=== PATIENT | male | born 1980 | race Caucasian/White ===

== ENCOUNTER 2020-04-13 00:19 | Outpatient (CLI) | payer OTHER, SELFPAY ==
[2020-04-13 18:29] LABS: SARS-CoV-2 RNA PCR Negative
== END 2020-04-13 00:20 | disposition home or self-care (01) ==
LOC: ANHCOVIDDT 00:19
PROVIDERS: PCP Internal Medicine; Visit Provider Internal Medicine Gastroenterology
DX: Z01.812 Encounter for preprocedural laboratory examination (principal); Z11.59 Encounter for screening for other viral diseases
CPT/HCPCS: 87635; C9803; U0003

== ENCOUNTER 2020-04-15 04:00 | Day surgery (SDC) | payer OTHER, SELFPAY ==
[2020-04-06 14:29] VITALS: BMI 27.2
[2020-04-15 07:21] VITALS: BP 117/73; PULSE 61; RESP 16; TEMP 36.3; O2SAT 99; BMI 27.3
--- NOTE | 2020-04-15 07:30 | P.HP_ITS ---
History of Present Illness History of Present Illness Consent: Risks, benefits, and alternatives have been discussed and questions answered. Patient agrees to proceed with procedure. Chief complaint: Reflux/ Fam Hx Colon Ca Narrative: Ed Viveros is a 40 year old male with familial adenomatous polyposis syndrome, positive FAP gene [facility] Social History Social History Smoking status: Never smoker Living arrangements: with family Gender identity (if verbalized by the patient): Male Sexual Orientation (if Verbalized by the Patient): Straight or Heterosexual Spiritual care concerns: No Meds Home Medications and Allergies Home Medications Medication Instructions Recorded Confirmed Type omeprazole 40 mg PO PRN PRN 04/06/20 04/15/20 History Allergies Allergy/AdvReac Type Severity Reaction Status Date / Time No Known Allergies Allergy Verified 04/15/20 07:20 Vital Signs Vital Signs - 24 hr 04/15/20 07:21 Temperature 36.3 C L Pulse Rate 61 Respiratory Rate 16 Blood Pressure 117/73 Pulse Oximetry 99 Exam Resp: Auscultation: clear to auscultation bilaterally Cardio: Rate: regular rate Rhythm: regular rhythm GI: GI Palp: Yes Soft to palpation and No Tenderness to palpation present (GI) Assessment and Plan Assessment and plan (1) Familial adenomatous polyposis: Code(s): D12.6 - Benign neoplasm of colon, unspecified Status: Acute Assessment and Plan: Colonoscopy with possible biopsy or polypectomy or cautery or injection of substances.EGD with possible biopsy or dilatation or cautery.
[2020-04-15] MEDS: LACTATED RINGERS 1,000 ML 150 ML IV CONT (07:37)
--- NOTE | 2020-04-15 07:57 | WPDANESEPPF ---
Anes - Initial Pre Proc Eval Procedure: Operation Date: 04/15/20 08:30 Proposed Procedures p Esophagogastroduodenoscopy & Screening Colonoscopy - Anant Lainez MD Date/Time: 04/15/20 07:57 Surgeon: Anant Lainez MD Pre Op Diagnosis: Reflux/ Fam Hx Colon Ca Patient Data Age: 40 Gender: M Height: 5 ft 7 in Weight: 79.2 kg Last Vital Signs Temp 97.3 F L 04/15/20 07:21 Pulse 61 04/15/20 07:21 Resp 16 04/15/20 07:21 BP 117/73 04/15/20 07:21 Pulse Ox 99 04/15/20 07:21 Allergies Allergy/AdvReac Type Severity Reaction Status Date / Time No Known Allergies Allergy Verified 04/15/20 07:20 Home Medications Medication Instructions Recorded Confirmed Type omeprazole 40 mg PO PRN PRN 04/06/20 04/15/20 History Patient hx anesthesia problems: none Family hx anesthesia problems: none [facility] Past Medical History Medical History (Updated 04/15/20 @ 07:49 by Keith Cortés MD) GERD (gastroesophageal reflux disease) Meniere disease Social History Social History Smoking status: Never smoker Living arrangements: with family Gender identity (if verbalized by the patient): Male Sexual Orientation (if Verbalized by the Patient): Straight or Heterosexual Spiritual care concerns: No Anes - Eval Final PreProcedure Day of Procedure 04/15/20 07:57 Patient weight: normal Heart: regular rate and rhythm Lungs: clear to auscultation Airway: Mallampati scale class II Neurological: alert and oriented Last oral intake: >/= 8 hours ASA classification: II Emergent: no Anesthetic plan: proceed Anesthesia type and monitoring: general GIVS and standard monitoring Informed Consent: The patient's anesthetic plan and its attendant risks and benefits were discussed with the patient/family/POA. Questions were solicited and answers provided to the satisfaction of the patient/family/POA.
[2020-04-15] MEDS: BENZOCAINE (*SP) 60 ML SPRAY CAN (HURRICAINE) 1 SPRAY MUCOUS MEM (08:20)
[2020-04-15 08:43] VITALS: BP 133/77; PULSE 61; RESP 15; O2SAT 60
[2020-04-15 08:53] VITALS: BP 97/55; PULSE 54; RESP 15; O2SAT 60
[2020-04-15 09:03] VITALS: BP 101/47; PULSE 58; RESP 15; O2SAT 60
== END 2020-04-15 09:25 | disposition home or self-care (01) ==
PROVIDERS: PCP Internal Medicine; Visit Provider Internal Medicine Gastroenterology
PROC: 0DJ08ZZ Inspection of Upper Intestinal Tract, Via Natural or Artificial Opening Endoscopic (ICD-10-PCS; CPT 43235; principal; 2020-04-15 08:30)
DX: Z12.11 Encounter for screening for malignant neoplasm of colon (principal); Z15.09 Genetic susceptibility to other malignant neoplasm; K21.0 Gastro-esophageal reflux disease with esophagitis
CPT/HCPCS: 45378; 43239; 88305; J2704; J7120

== ENCOUNTER 2022-04-13 00:19 | Day surgery (SDC) | payer OTHER, SELFPAY ==
[2022-03-30 13:58] VITALS: BMI 27.6
--- NOTE | 2022-04-12 09:40 | P.PNAN_ITS ---
Anes - Initial Pre Proc Eval Procedure: Operation Date: 04/13/22 07:30 Proposed Procedures p Esophagogastroduodenoscopy & Screening Colonoscopy - Anant Lainez MD Date/Time: 04/12/22 09:40 Surgeon: Anant Lainez MD Pre Op Diagnosis: familial adenomatous polyposis syndrome Patient Data Age: 42 Gender: M Height: 1.7 m Weight: 80 kg Allergies Allergy/AdvReac Type Severity Reaction Status Date / Time No Known Allergies Allergy Verified 04/13/22 06:42 Home Medications Medication Instructions Recorded Confirmed Type onabotulinumtoxinA 100 unit 200 unit IM ONCE 01/31/22 01/31/22 History solution for injection (Botox) Patient hx anesthesia problems: none Family hx anesthesia problems: none Results Review: All pre-operative results and documents have been reviewed as part of the pre- operative evaluation. [facility] Past Medical History Medical History (Updated 01/31/22 @ 16:12 by Abhijit Trujillo MD) Arthritis of right acromioclavicular joint GERD (gastroesophageal reflux disease) Meniere disease Migraine Vertigo Surgical History Surgical History No significant past surgical history Family History Family History Grandparent Carcinoma of colon Mother Carcinoma of colon Social History Social History Smoking status: Never smoker Alcohol intake: current Drinks per week: 1 Alcohol use details: Beer/Wine Substance use: never Substance use type: does not use Living arrangements: with family 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 Gender identity (if verbalized by the patient): Male Sexual Orientation (if Verbalized by the Patient): Straight or Heterosexual Spiritual care concerns: No Anes - Eval Final PreProcedure Day of Procedure 04/12/22 09:40 Patient weight: overweight Heart: regular rate and rhythm Lungs: clear to auscultation Airway: Mallampati scale class II Neurological: alert and oriented Last oral intake: >/= 8 hours ASA classification: II Emergent: no Anesthetic plan: proceed Anesthesia type and monitoring: general GIVS and standard monitoring Results Review: All pre-operative results and documents have been reviewed as part of the pre- operative evaluation. Informed Consent: The patient's anesthetic plan and its attendant risks and benefits were discussed with the patient/family/POA. Questions were solicited and answers provided to the satisfaction of the patient/family/POA.
--- NOTE | 2022-04-12 11:16 | P.HP_ITS ---
History of Present Illness History of Present Illness Consent: Risks, benefits, and alternatives have been discussed and questions answered. Patient agrees to proceed with procedure. Chief complaint: familial adenomatous polyposis syndrome Narrative: Ed Viveros is a 42 year old male with a family history of familial adenomatous polyposis syndrome. Positive for FAP gene. Review of Systems Review of Systems: All systems reviewed & are unremarkable except as noted in HPI and below PMFSH Past Medical History Medical History Arthritis of right acromioclavicular joint GERD (gastroesophageal reflux disease) Meniere disease Migraine Vertigo Surgical History Surgical History No significant past surgical history Family History Family History Grandparent Carcinoma of colon Mother Carcinoma of colon Social History Social History Smoking status: Never smoker Alcohol intake: current Drinks per week: 1 Alcohol use details: Beer/Wine Substance use: never Substance use type: does not use Living arrangements: with family 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 Gender identity (if verbalized by the patient): Male Sexual Orientation (if Verbalized by the Patient): Straight or Heterosexual Spiritual care concerns: No Meds Home Medications and Allergies Home Medications Medication Instructions Recorded Confirmed Type onabotulinumtoxinA 100 unit 200 unit IM ONCE 01/31/22 01/31/22 History solution for injection (Botox) Allergies Allergy/AdvReac Type Severity Reaction Status Date / Time No Known Allergies Allergy Verified 04/13/22 06:42 Exam Const: General: alert Orientation/consciousness: patient oriented x3 Resp: Auscultation: clear to auscultation bilaterally Cardio: Rhythm: regular rhythm GI: GI Palp: Yes Soft to palpation and No Tenderness to palpation present (GI) Neuro: General: patient oriented x3 Assessment and Plan Assessment and plan (1) Familial adenomatous polyposis: Code(s): D12.6 - Benign neoplasm of colon, unspecified Status: Acute Assessment and Plan: EGD with possible biopsy or dilatation or cautery.Colonoscopy with possible biopsy or polypectomy or cautery or injection of substances.
[2022-04-13 06:43] VITALS: BP 115/72; PULSE 58; RESP 20; TEMP 36.4; O2SAT 99
[2022-04-13] MEDS: LACTATED RINGERS 1,000 ML 150 ML IV CONT (06:52)
--- NOTE | 2022-04-13 07:40 | SUR.OPER ---
EGD ended at 734. Colonoscopy started at 742.
[2022-04-13 07:55] VITALS: BP 104/68; PULSE 66; RESP 20; O2SAT 100
[2022-04-13 08:05] VITALS: BP 96/61; PULSE 61; RESP 22; O2SAT 100
[2022-04-13 08:15] VITALS: BP 113/69; PULSE 58; RESP 16; O2SAT 99
== END 2022-04-13 08:23 | disposition home or self-care (01) ==
PROVIDERS: PCP Internal Medicine; Visit Provider Internal Medicine Gastroenterology
PROC: 0DJ08ZZ Inspection of Upper Intestinal Tract, Via Natural or Artificial Opening Endoscopic (ICD-10-PCS; CPT 43235; principal; 2022-04-13 07:30)
DX: Z12.11 Encounter for screening for malignant neoplasm of colon (principal); Z84.81 Family history of carrier of genetic disease; K57.30 Diverticulosis of large intestine without perforation or abscess without bleeding; K21.9 Gastro-esophageal reflux disease without esophagitis; M19.90 Unspecified osteoarthritis, unspecified site; H81.09 Meniere's disease, unspecified ear; K21.00 Gastro-esophageal reflux disease with esophagitis, without bleeding
CPT/HCPCS: 45378; 43235; J2704; J7120

== ENCOUNTER 2023-04-24 00:24 | Day surgery (SDC) | payer OTHER, SELFPAY ==
[2023-04-10 13:46] VITALS: BMI 27.4
--- NOTE | 2023-04-23 13:06 | PM.HPGS ---
History of Present Illness History of Present Illness Consent: Risks, benefits, and alternatives have been discussed and questions answered. Patient agrees to proceed with procedure. Chief complaint: diverticulosis, reflux Esophagitis Narrative: Ed Viveros is a 43 year old male with history of familial polyposis. He is positive for the and PT while H. 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 Review of Systems Review of Systems: All systems reviewed & are unremarkable except as noted in HPI and below PMFSH Past Medical History Medical History Arthritis of right acromioclavicular joint GERD (gastroesophageal reflux disease) Meniere disease Migraine Vertigo Surgical History Surgical History No significant past surgical history Family History Family History Grandparent Carcinoma of colon Mother Carcinoma of colon Social History Social History Smoking status: Never smoker Alcohol intake: current Drinks per week: 1 Alcohol use details: Beer/Wine Substance use: never Substance use type: does not use Living arrangements: with family Occupation/Education: occupation 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 Gender identity (if verbalized by the patient): Male Sexual Orientation (if Verbalized by the Patient): Straight or Heterosexual Spiritual care concerns: No Meds Home Medications and Allergies Home Medications Medication Instructions Recorded Confirmed Type onabotulinumtoxinA 100 unit 200 unit IM ONCE 01/31/22 04/24/23 History solution for injection (Botox) omeprazole 40 mg capsule,delayed 40 mg PO DAILY #90 caps 05/28/22 04/24/23 Rx release Allergies Allergy/AdvReac Type Severity Reaction Status Date / Time No Known Allergies Allergy Verified 04/24/23 07:16 Exam Const: General: alert Orientation/consciousness: patient oriented x3 Resp: Auscultation: clear to auscultation bilaterally Cardio: Rhythm: regular rhythm GI: GI Palp: Yes Soft to palpation and No Tenderness to palpation present (GI) Neuro: General: patient oriented x3 Assessment and Plan Assessment and plan (1) MSH2-related Roger syndrome (HNPCC1): Code(s): Z15.09 - Genetic susceptibility to other malignant neoplasm Status: Acute Assessment and Plan: EGD with possible biopsy or dilatation or cautery. Colonoscopy with possible biopsy or polypectomy or cautery or injection of substances.
[2023-04-24 07:10] VITALS: BP 128/77; PULSE 61; RESP 18; TEMP 36.1; O2SAT 99; BMI 28.2
[2023-04-24] MEDS: LACTATED RINGERS 1,000 ML 150 ML IV CONT (07:24)
[2023-04-24 08:57] VITALS: BP 106/67; PULSE 64; RESP 19; O2SAT 100
[2023-04-24 09:07] VITALS: BP 123/77; PULSE 70; RESP 22; O2SAT 100
[2023-04-24 09:17] VITALS: BP 110/80; PULSE 56; RESP 22; O2SAT 100
== END 2023-04-24 09:24 | disposition home or self-care (01) ==
PROVIDERS: PCP Internal Medicine; Visit Provider Internal Medicine Gastroenterology
PROC: 0DJ08ZZ Inspection of Upper Intestinal Tract, Via Natural or Artificial Opening Endoscopic (ICD-10-PCS; CPT 43235; principal; 2023-04-24 08:30)
DX: Z12.11 Encounter for screening for malignant neoplasm of colon (principal); K62.1 Rectal polyp; Z80.0 Family history of malignant neoplasm of digestive organs; Z15.09 Genetic susceptibility to other malignant neoplasm; K21.9 Gastro-esophageal reflux disease without esophagitis
CPT/HCPCS: 45385; 43239; 88305; J2704; J7120

== ENCOUNTER 2024-04-21 00:45 | Day surgery (SDC) | payer OTHER, SELFPAY ==
[2024-04-02 15:03] VITALS: BMI 28.3
[2024-04-21 08:46] VITALS: BP 125/78; PULSE 62; RESP 18; TEMP 36.6; O2SAT 99
[2024-04-21] MEDS: LACTATED RINGERS 1,000 ML 150 ML IV CONT (08:53)
--- NOTE | 2024-04-21 09:12 | WPDANESEPPF ---
Anes - Initial Pre Proc Eval Procedure: Operation Date: 04/21/24 10:00 Proposed Procedures p Esophagogastroduodenoscopy & Colonoscopy - Richard Musa MD Date/Time: 04/21/24 09:12 Surgeon: Richard Musa MD Pre Op Diagnosis: Roger Syndrome Carrier, Pers.Hx. colon polyp, Patient Data Age: 44 Gender: M Height: 1.7 m Weight: 83.1 kg Last Vital Signs Temp 97.8 F 04/21/24 08:46 Pulse 62 04/21/24 08:46 Resp 18 04/21/24 08:46 BP 125/78 04/21/24 08:46 Pulse Ox 99 04/21/24 08:46 O2 Del Method Room Air 04/21/24 08:46 Allergies Allergy/AdvReac Type Severity Reaction Status Date / Time No Known Allergies Allergy Verified 04/21/24 08:44 Home Medications Medication Instructions Recorded Confirmed Type onabotulinumtoxinA 100 unit See Rx Instructions .Route .COMPLEX 01/31/22 04/21/24 History solution for injection (Botox) clomiphene citrate 50 mg tablet 50 mg PO DAILY 04/02/24 04/21/24 History (Clomid) finasteride 5 mg tablet 5 mg PO DAILY 04/02/24 04/21/24 History omeprazole 40 mg capsule,delayed 40 mg PO DAILY PRN Acid Reflux 04/02/24 04/21/24 History release Patient hx anesthesia problems: none Family hx anesthesia problems: none Results Review: All pre-operative results and documents have been reviewed as part of the pre-operative evaluation. 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 Gender identity (if verbalized by the patient): Male Sexual Orientation (if Verbalized by the Patient): Straight or Heterosexual Spiritual care concerns: No Anes - Eval Final PreProcedure Day of Procedure 04/21/24 09:12 Patient weight: normal Heart: regular rate and rhythm Lungs: clear to auscultation Airway: Mallampati scale class II Neurological: alert and oriented Last oral intake: >/= 8 hours ASA classification: II Emergent: no Anesthetic plan: proceed Anesthesia type and monitoring: general GIVS and standard monitoring Results Review: All pre-operative results and documents have been reviewed as part of the pre-operative evaluation. Informed Consent: The patient's anesthetic plan and its attendant risks and benefits were discussed with the patient/family/POA. Questions were solicited and answers provided to the satisfaction of the patient/family/POA.
--- NOTE | 2024-04-21 09:23 | PM.HPGS ---
History of Present Illness History of Present Illness Consent: Risks, benefits, and alternatives have been discussed and questions answered. Patient agrees to proceed with procedure. Chief complaint: Roger Syndrome Carrier, Pers.Hx. colon polyp, Narrative: Ed Viveros is a 44 year old male with family history of familial adenomatous polyposis syndrome and carrier of Roger, he has been getting egd/colonoscopy every year Review of Systems Review of Systems: All systems reviewed & are unremarkable except as noted in HPI and below PMFSH Past Medical History Medical History Arthritis of right acromioclavicular joint GERD (gastroesophageal reflux disease) Meniere disease Migraine Vertigo Surgical History Surgical History No significant past surgical history Family History Family History Grandparent Carcinoma of colon Mother Carcinoma of colon Social History Social History Smoking status: Never smoker Alcohol intake: current Drinks per week: 1 Alcohol use details: Beer/Wine Substance use: never Substance use type: does not use Living arrangements: with family 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/Education: occupation 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 Gender identity (if verbalized by the patient): Male Sexual Orientation (if Verbalized by the Patient): Straight or Heterosexual Spiritual care concerns: No Meds Home Medications and Allergies Home Medications Medication Instructions Recorded Confirmed Type onabotulinumtoxinA 100 unit See Rx Instructions .Route .COMPLEX 01/31/22 04/21/24 History solution for injection (Botox) clomiphene citrate 50 mg tablet 50 mg PO DAILY 04/02/24 04/21/24 History (Clomid) finasteride 5 mg tablet 5 mg PO DAILY 04/02/24 04/21/24 History omeprazole 40 mg capsule,delayed 40 mg PO DAILY PRN Acid Reflux 04/02/24 04/21/24 History release Allergies Allergy/AdvReac Type Severity Reaction Status Date / Time No Known Allergies Allergy Verified 04/21/24 08:44 Vital Signs Vital Signs - 24 hr 04/21/24 08:46 Temperature 97.8 F Pulse Rate 62 Respiratory Rate 18 Blood Pressure 125/78 Pulse Oximetry 99 Oxygen Delivery Room Air Exam Const: General: comfortable and no acute distress HENMT: Face/Nose/Sinus: Normal nares present Eyes: General: appearance normal, both eyes and all related structures Neck: Neck: no JVD Resp: Auscultation: clear to auscultation bilaterally Cardio: Rate: regular rate Rhythm: regular rhythm GI: Inspection: non-distended GI Palp: Yes Soft to palpation Skin: General skin exam: normal color Neuro: General: gait normal Speech: normal speech Extrem: General: normal to inspection Psych: Mental Status: mental status grossly normal Assessment and Plan Assessment and plan (1) Familial adenomatous polyposis: Code(s): D12.6 - Benign neoplasm of colon, unspecified Status: Acute Assessment and Plan: egd and colonoscopy (2) MSH2-related Roger syndrome (HNPCC1): Code(s): Z15.09 - Genetic susceptibility to other malignant neoplasm Status: Acute
--- NOTE | 2024-04-21 09:34 | SUR.OPER ---
EGD ended 929 colon started 934
[2024-04-21 09:47] VITALS: BP 109/72; PULSE 68; RESP 20; O2SAT 99
[2024-04-21 09:57] VITALS: BP 111/75; PULSE 72; RESP 20; O2SAT 100
[2024-04-21 10:07] VITALS: BP 112/76; PULSE 59; RESP 19; O2SAT 100
== END 2024-04-21 10:13 | disposition home or self-care (01) ==
PROVIDERS: PCP Internal Medicine; Referring Provider Internal Medicine Gastroenterology; Visit Provider Internal Medicine Gastroenterology
PROC: 0DJ08ZZ Inspection of Upper Intestinal Tract, Via Natural or Artificial Opening Endoscopic (ICD-10-PCS; CPT 43235; principal; 2024-04-21 10:00)
DX: Z15.09 Genetic susceptibility to other malignant neoplasm (principal); Z86.010 Personal history of colon polyps; K21.9 Gastro-esophageal reflux disease without esophagitis
CPT/HCPCS: 45378; 43235; J2704; J7120

== ENCOUNTER 2024-07-09 00:14 | Day surgery (SDC) | payer OTHER, SELFPAY ==
[2024-07-06 14:37] VITALS: BMI 28.2
--- NOTE | 2024-07-06 14:43 | PC.NURSE ---
Report to the Outpatient Waiting Room, entrance under the green pavilion located off [facility], at time _0630_ on date _[id number]_. Planned Procedure Time: _0830_.? Time changes happen often and if your time is changed the preop area will call you the afternoon before. - You and your visitor will be asked to self-screen and do not enter if you have any COVID symptoms. Please call surgeon if you need to reschedule. - A mask is optional within the hospital at this time. Patients may have clear liquids (water, carbonated beverages, clear teas, apple juice) until 3 hours prior to surgery with a maximum of 20 ounces. - No food from midnight until time of surgery and no smoking. This includes no chewing gum, candy or mints. Take only the following medications with a SIP of water on the morning of surgery: ____None DO NOT STOP ANY OF YOUR OTHER PRESCRIPTION MEDICATIONS PRIOR TO SURGERY EXCEPT THE FOLLOWING Medications to discontinue per physician Multivitamin Date to take last dose____Stop today Please no make-up, nail [place], hairspray, perfume, deodorant, or body powder the day of surgery.? No jewelry (including any body piercings) or valuables the day of surgery, leave them at home.? Please take a shower or bath the night before, or the morning of, surgery with an antibacterial soap.? Wear comfortable, loose fitting clothing.? - Jewelry must be removed prior to entering the operating room.? Rings and piercings that are not removed may be cut off. - The hospital will not accept responsibility for valuables.? - Please leave all valuables, including medications, at home the day of surgery. If you are going home after surgery, a licensed jukebox route driver must drive you home.? - NO public transportation without another adult if you receive anesthesia. - We recommend that an adult stay with you for 24 hours following discharge. - We also recommend that you do not drive, make important decision, drink alcoholic beverages, or take any drugs that were not prescribed by your health care provider for at least 24 hours after your discharge time. Follow any additional instructions given to you from your surgeon. Telephone instructions given to __Ed__and asked if any additional questions and then verbalized understanding. Patient advised to call surgeon office or pre surgery nurse liaison [phone] if any additional questions.
[2024-07-09] VITALS (8 sets, daily range): BP systolic 97–125; BP diastolic 50–79; PULSE 55–67; RESP 14–16; TEMP 36.3; O2SAT 99–100
[2024-07-09] MEDS: LACTATED RINGERS 1,000 ML 30 ML IV CONT ×2 (08:00→10:17)
[2024-07-09] MEDS: ACETAMINOPHEN 500 MG TABLET 1000 MG PO (08:00)
--- NOTE | 2024-07-09 08:11 | WPDANESEPPF ---
Anes - Initial Pre Proc Eval Procedure: Operation Date: 07/09/24 08:30 Proposed Procedures p Bilateral Heel [place] Shock Wave Treatment - Dejon Rae MD Date/Time: 07/09/24 08:11 Surgeon: Dejon Rae MD Pre Op Diagnosis: Bilateral Plantar Fasciitits Patient Data Age: 44 Gender: M Height: 1.7 m Weight: 81.8 kg Allergies Allergy/AdvReac Type Severity Reaction Status Date / Time No Known Allergies Allergy Verified 07/06/24 14:36 Home Medications ?Medication ?Instructions ?Recorded ?Confirmed ?Type onabotulinumtoxinA 100 unit See Rx Instructions .Route .COMPLEX 01/31/22 07/06/24 History solution for injection (Botox) clomiphene citrate 50 mg tablet 50 mg PO DAILY 04/02/24 07/06/24 History (Clomid) finasteride 5 mg tablet 5 mg PO DAILY 04/02/24 07/06/24 History omeprazole 40 mg capsule,delayed 40 mg PO DAILY PRN Acid Reflux #30 05/19/24 07/06/24 Rx release caps multivitamin 1 tablet PO DAILY 07/06/24 07/06/24 History Patient hx anesthesia problems: none Family hx anesthesia problems: none Results Review: All pre-operative results and documents have been reviewed as part of the pre-operative evaluation. [facility] Past Medical History Medical History Plantar fasciitis of left foot Plantar fasciitis of right foot Arthritis of right acromioclavicular joint Vertigo Migraine Meniere disease GERD (gastroesophageal reflux disease) Surgical History Surgical History No significant past surgical history Family History Family History Grandparent Carcinoma of colon Mother Carcinoma of colon Social History Social History Smoking status: Never smoker Alcohol intake: current Drinks per week: 1 Alcohol use details: Beer/Wine Substance use: never Substance use type: does not use Living arrangements: with family Occupation/Education: occupation 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 ) Neurological: alert and oriented Last oral intake: >/= 8 hours ASA classification: II Emergent: no Anesthetic plan: proceed Anesthesia type and monitoring: general LMA and standard monitoring Results Review: All pre-operative results and documents have been reviewed as part of the pre-operative evaluation. Hx of Roger syndrome. Otherwise excellent health w high functional status w running long distances, no cp or sob. Informed Consent: The patient's anesthetic plan and its attendant risks and benefits were discussed with the patient/family/POA. Questions were solicited and answers provided to the satisfaction of the patient/family/POA.
--- NOTE | 2024-07-09 08:44 | WPDHPUPDATE1 ---
History and Physical Update Update Date/Time: 07/09/24 08:44 History and Physical has been reviewed, including an updated exam of the patient. There are NO changes in the patient's condition. Risks, benefits, and alternatives have been discussed and questions answered. Patient agrees to proceed with procedure.
--- NOTE | 2024-07-09 09:50 | W.PM.PROC2 ---
Procedure Note - Detailed Date of Procedure 07/09/24 Pre-op Diagnosis Bilateral Plantar Fasciitits Post-op Diagnosis Same Procedure Performed Bilateral heel [place] shockwave Surgeon Dejon Rae MD Anesthesia General Indications 44-year-old with bilateral plantar heel pain recalcitrant to treatment with cortisone injections, physical therapy could arch support inserts and activity modification. Presents for operative treatment. Description of Procedure Patient identified in the preoperative holding. Informed consent given. Operative extremity marked. Patient marked the area of maximal tenderness on the heel with indelible ink. Patient brought to the operating room where underwent General anesthesia by anesthesia team. Positioned supine on operating room table. Time-out performed confirming the patient, site of the surgery and the plan. Shockwave unit then positioned for the heel. Ultrasound gel applied to the left plantar heel. Shockwave then applied to heel at an average of 19 kV for 2000 shock deliveries. Concentrated around area of marked maximal tenderness as well as diffusely plantar fascia, heel area. ultrasound gel then applied to the right plantar heel. Shockwave then applied to heal at an average of 19 kilos for 2000 shock deliveries. Concentrated around area of marked maximal tenderness as well as diffusely plantar fascia, heel area. Ultrasound gel then removed. Patient awoken from anesthesia and taken to the recovery room in stable condition. Estimated Blood Loss 0 Tourniquet Time Total Tourniquet Time: 0 Drains No Packing No Pathology None sent Complications None Condition Stable Disposition PACU [facility] Billing Surgery - Charge Forward: Surgery Billing ([id number]- X2, bilateral)
== END 2024-07-09 10:52 | disposition home or self-care (01) ==
PROVIDERS: PCP Internal Medicine; Visit Provider Orthopaedic Surgery
PROC: (CPT 28890; principal; 2024-07-09 08:30)
DX: M72.2 Plantar fascial fibromatosis (principal); M19.011 Primary osteoarthritis, right shoulder; K21.9 Gastro-esophageal reflux disease without esophagitis; Z80.0 Family history of malignant neoplasm of digestive organs
CPT/HCPCS: 28890; A9270; J1100; J2250; J2405; J2704; J3010; J7120

== ENCOUNTER 2025-03-17 02:46 | Day surgery (SDC) | payer OTHER, SELFPAY ==
--- NOTE | 2025-02-11 14:19 | PM.IMHP ---
H&P: HPI History of Present Illness Date/Time: 02/11/25 14:19 Chief Complaint: left heel pain Narrative: a 44-year-old with a long history of left plantar heel pain. Pain on a daily basis with weight-bearing and activity. Difficulty with daily work duties due to pain. Originally had bilateral plantar heel pain. Successful ossatron shockwave treatment to the right heel. Still with pain on the left side. He has been doing daily stretching exercises, night splint and inserts for his shoe. In addition has a 5 year history of low back pain radiating into both legs. Previous MRI showed stenosis of the lumbar spine. He has failed treatment with stretching exercises, core strengthening, anti-inflammatories. Review of Systems Constitutional: Constitutional: Denies fever(s) Eyes: Eyes: Denies blurry vision ENT: Reports Normal hearing present Cardiovascular: Cardiovascular: Denies chest pain and Denies dyspnea Respiratory: Respiratory: Denies dyspnea and Denies wheezing Gastrointestinal: Gastrointestinal: Denies abdominal pain Genitourinary: Genitourinary: Denies urinary urgency Musculoskeletal: Musculoskeletal: Reports as per HPI and Denies numbness Integumentary/Breasts: Skin/Breast: Denies changing lesions and Denies sores Neurologic: Reports Normal hearing present, Denies behavioral changes, Denies confusion, Denies numbness and Denies convulsions Psychiatric: Psychiatric: Denies behavioral changes, Denies confusion and Denies hallucinations Endocrine: Endocrine: Denies heat intolerance Hematologic/Lymphatic: Hematologic/Lymphatic: Denies easy bleeding Allergic/Immunologic: Allergic/Immunologic: Denies wheezing PMF Past Medical History Medical History (Updated 02/11/25 @ 14:26 by Dejon Rae MD) Lumbosacral spondylosis with radiculopathy Plantar fasciitis of left foot Plantar fasciitis of right foot Arthritis of right acromioclavicular joint Vertigo Migraine Meniere disease GERD (gastroesophageal reflux disease) Surgical History Surgical History No significant past surgical history Family History Family History Grandparent Carcinoma of colon Mother Carcinoma of colon Social History Social History Smoking status: Never smoker Alcohol intake: current Drinks per week: 1 Alcohol use details: Beer/Wine Substance use: never Substance use type: does not use Living arrangements: with family Occupation/Education: occupation Additional occupation/education comments: [employer] Gender identity (if verbalized by the patient): Male Sexual Orientation (if Verbalized by the Patient): Straight or Heterosexual Spiritual care concerns: No Meds Home Medications and Allergies Home Medications ?Medication ?Instructions ?Recorded ?Confirmed ?Type onabotulinumtoxinA 100 unit See Rx Instructions .Route .COMPLEX 01/31/22 07/06/24 History solution for injection (Botox) clomiphene citrate 50 mg tablet 50 mg PO DAILY 04/02/24 07/09/24 History (Clomid) finasteride 5 mg tablet 5 mg PO DAILY 04/02/24 07/09/24 History omeprazole 40 mg capsule,delayed 40 mg PO DAILY PRN Acid Reflux #30 05/19/24 07/09/24 Rx release caps multivitamin 1 tablet PO DAILY 07/06/24 07/06/24 History hydrocodone 5 mg-acetaminophen 325 1 tablet PO Q6H PRN pain #14 tabs 07/09/24 Rx mg tablet Allergies Allergy/AdvReac Type Severity Reaction Status Date / Time No Known Allergies Allergy Verified 07/15/24 07:38 Exam Const: General: healthy appearing; No in distress or confusion Orientation/consciousness: oriented to person, oriented to place, oriented to time and No confusion HENMT: Head: normal to inspection, normocephalic and atraumatic Eyes: Conjunctivae: conjunctivae normal Sclera: sclerae normal Neck: Neck: supple and nontender Resp: Effort & Inspection: normal respiratory effort and no audible wheezes Cardio: Rate: regular rate Rhythm: regular rhythm Back/Spine/Pelvis: Thoracic/Lumbar Spine: thoraco-lumbar ROM limited with forward flexion, with lateral flexion to the right and with lateral flexion to the left, lumbar spinal tenderness at L3, at L4 and at L5 and straight leg raise positive bilateral Skin: General skin exam: no rashes or lesions noted Neuro: General: oriented to person, oriented to place, oriented to time and No confusion Extrem: Right upper extremity: normal to inspection Left upper extremity: normal to inspection Right lower extremity: normal to inspection, normal capillary refill, ankle Details: normal to inspection and abnormal ROM Details: pain with active ROM, pain with passive ROM and with range as follows (dorsiflexion -10, planter flexion 40, inversion 15, eversion 5); no tenderness and no swelling and foot Details: tenderness (plantar heel ), vascular exam (2+ dorsalis pedis pulse ), tendon exam and motor-sensory exam (strength 5/5 throughout . Light touch sensation intact throughout ); no crepitus; no edema Left lower extremity: ankle Details: abnormal ROM Details: pain with active ROM, pain with passive ROM and with range as follows (dorsiflexion -10, planter flexion 40, inversion 15, Eversion 5); no tenderness and no swelling and foot Details: tenderness (plantar heel ), no edema, vascular exam (2+ dorsalis pedis pulse) and motor-sensory exam (strength 5/5 except peroneal 4/5 . Light touch sensation intact ); no ecchymosis Psych: Affect: normal affect Assessment and Plan Assessment and plan (1) Plantar fasciitis of left foot: Code(s): M72.2 - Plantar fascial fibromatosis Status: Acute Assessment and Plan: Patient is active with exercise. He has failed treatment with previous cortisone injections x2, physical therapy, stretching regimen, activity modification, shoe inserts. he had initial good relief after ossatron shockwave to the left heel 7 months ago. Continues to have pain on a daily basis and affects daily activity and weight-bearing. Discussed the condition, nature, etiology and course of natural history with the patient. Treatment options including surgical and nonoperative treatment were reviewed. Risks and benefits of each as well as alternatives reviewed. The patient's questions were answered. He has failed conservative treatment to date. Plan Discussed nonoperative and operative treatment options with the patient. Risks and benefits of each as well as alternatives were reviewed. All of the patient's questions were answered. The risks of surgery reviewed including but not limited to: Neurovascular damage, wound complication, infection, blood clot, pulmonary embolus, stroke, myocardial infarction, and anesthetic risks up to and including . Continued pain and possible dysfunction were explained. Specific risks of the procedure including later recurrence of deformity. No guarantees were offered. If complications occur, the patient understands the need for further treatment, possible further surgery. Patient verbalizes understanding and wishes to proceed. PLAN: Left plantar heel Ossatron shockwave (2) Lumbosacral spondylosis with radiculopathy: Code(s): M47.27 - Other spondylosis with radiculopathy, lumbosacral region Status: Acute Assessment and Plan: failed conservative treatment with therapy, stretching exercises, core strengthening and anti-inflammatories. Referral to Neurosurgery for evaluation.
[2025-02-17 12:43] VITALS: BMI 27.3
--- NOTE | 2025-02-17 12:53 | SUR.PREOP ---
Report to the Outpatient Waiting Room, entrance under the green pavilion located off [facility], at time 1000 on date 02/25/2025. Planned Procedure Time: 1200.? Time changes happen often and if your time is changed the preop area will call you the afternoon before. - You and your visitor will be asked to self-screen and do not enter if you have any COVID symptoms. Please call surgeon if you need to reschedule. - A mask is optional within the hospital at this time. Patients may have clear liquids (water, carbonated beverages, clear teas, apple juice) until 3 hours prior to surgery with a maximum of 20 ounces. - No food from midnight until time of surgery and no smoking, or chewing tobacco (or any form of nicotine). No chewing gum, candy or mints. Take only the following medications with a SIP of water on the morning of surgery: N/A DO NOT STOP ANY OF YOUR OTHER PRESCRIPTION MEDICATIONS PRIOR TO SURGERY EXCEPT THE FOLLOWING Hold all vitamins and supplements for 3 days per anesthesiologist. Medications to discontinue per physician Multivitamin Date to take last dose 02/22/2025 Please no make-up, nail hungarian, hairspray, perfume, deodorant, or body powder the day of surgery.? No jewelry (including any body piercings) or valuables the day of surgery, leave them at home.? Please take a shower or bath the night before, or the morning of, surgery with an antibacterial soap.? Wear comfortable, loose fitting clothing.? Children are encouraged to wear pajamas. - Jewelry must be removed prior to entering the operating room.? Rings and piercings that are not removed may be cut off. - The hospital will not accept responsibility for valuables.? - Please leave all valuables, including medications, at home the day of surgery. If you are going home after surgery, a licensed city bus driver must drive you home.? - NO public transportation without another adult if you receive anesthesia. - We recommend that an adult stay with you for 24 hours following discharge. - We also recommend that you do not drive, make important decision, drink alcoholic beverages, or take any drugs that were not prescribed by your health care provider for at least 24 hours after your discharge time. Follow any additional instructions given to you from your surgeon. Telephone instructions given to Ed Viveros and asked if any additional questions and then verbalized understanding. Patient advised to call surgeon office or pre surgery nurse liaison [phone] if any additional questions.
--- OUTSIDE RECORDS SUMMARY | 2025-02-25 00:19 | XMS_ITS | Referral Summary ---
[facility] Address [address] [address] Care Team Providers Care Electric Detector Operator Name Role Phone Andrés Hankins MD Primary Care Provider [phone] Mckenna Castro MD Unavailable [phone] Encounters Date Type Department Care Team Description 02/17/2025 8:30 AM CDT [facility] [address] [place] [address] Mckenna Castro MD Intractable chronic migraine without aura and without status migrainosus from Last 3 Months Allergies No known active allergies Medications onabotulinumto lulú A (BOTOX) 200 unit recon soln inject 155 - 200 Unit by Intramuscular route every 90 days to be injected in office by 0 vial 0 4 Active Additional Information Patient taking differently: (No dose reported), Reported on 02/17/2025 scopolamine (TRANSDERM-SCO P) 1 mg over 3 days patch 3 day apply 1 patch by transdermal route to the hairless area behind 1 ear at least 4 hr before effect is required; reapply every 3 days as needed 10 patch 11 6 Active omeprazole (PriLOSEC) 40 mg capsule Take 1 capsule (40 mg total) by mouth daily As needed 9 Active finasteride (PROSCAR) 5 mg tablet Take 1 tablet (5 mg total) by mouth daily 4 Active Clomid 50 mg tablet Take 15 mg by mouth daily 4 Active multivitamin with iron tablet Take 1 tablet by mouth daily 4 Active Active Problems Problem Noted Date Diagnosed Date Meniere disease 08/26/2018 Neck pain 08/26/2018 Vertigo 04/08/2015 Overview (11/01/2016): Vertigo Common migraine with intractable migraine 2013 Overview (11/01/2016): Headache, chronic migraine without aura, intractable Myopia 03/26/2012 Atypical migraine 07/07/2010 Social History Tobacco Use Types Packs/Day Years Used Date Smoking Tobacco: Never Smokeless Tobacco: Never Tobacco Cessation:Counseling Given: Not Answered Alcohol Use Standard Drinks/Week Comments Yes 0 (1 standard drink = 0.6 oz pur e alcohol) AUDIT-C Answer Date Recorded Q1: How often do you have a drink containing alc ohol? 2-4 times a month 02/17/2025 Q2: How many drinks containi ng alcohol do you have on a typical day when you are drinking? 1 or 2 02/17/2025 Q3: How often do you have si x or more drinks on one occasion? 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 Gender Identity Not on file Sexual Orientation Not on file Last Filed Vital Signs Vital Sign Reading Time Taken Comments Blood Pressure 122/72 02/17/2025 8:12 AM CDT Pulse 56 02/17/2025 8:12 AM CDT Temperature - - Respiratory Rate 16 02/17/2025 8:12 AM CDT Oxygen Saturation 98% 02/17/2025 8:12 AM CDT Inhaled Oxygen Concentration - - Weight 79.4 kg (175 lb) 02/17/2025 8:12 AM CDT Height 172.2 cm (5' 7.8) 02/17/2025 8:12 AM CDT Body Mass Index 26.77 02/17/2025 8:12 AM CDT Plan of Treatment Not on file Procedures Procedure Name Priority Date/Time Associated Diagnosis Comments BOTOX INJECTION Routine 02/17/2025 8:30 AM CDT Intractable chronic migraine without aura and without status migrainosus from Last 3 Months Results * Botox Injection (02/17/2025 8:30 AM CDT) Narrative Kiara Calix - 02/17/2025 8:30 AM CDT Kiara Calix 02/18/2025 8:24 AM Botox Injection Performed by: Mckenna Castro MD Authorized by: Mckenna Castro MD [place] Protocol: Procedure Details - Botox Injection: Procedure Details: See Botox flow sheet for details on injection sites and amounts. us Mckenna Castro MD IN CLINIC/BEDSIDE ORDERABLES Final Result from Last [address] [facility] [employer] [place] [employer] Care Teams Electric Detector Operator Relationship Specialty Start Date End Date Andrés Hankins MD PCP - General 02/19/17 Mckenna Castro MD [address] [address] Consulting Physician Neurology 11/15/21
--- OUTSIDE RECORDS SUMMARY | 2025-02-25 00:19 | XMS_ITS | Clinical Summary ---
Author Organization [facility] Address [address] [address] Care Team Providers Care Science Teacher Name Role Phone Unavailable Primary Care Provider Unavailabl e Source Comments [facility],non-owned Affiliates and Associated Physician Practices is amultiple site organization consisting of ambulatory clinics and hospital sitesin [place], [place], [place] and [place]. This disclosure is being madepursuant to the Care Everywhere program and may not contain all information available regarding this patient. Last updated 18.[facility] [employer] Social History Tobacco Use Types Packs/Day Years Used Date Smoking Tobacco: Never Assessed Sex and Gender Information Value Date Recorded Sex Assigned at Not on file Legal Sex Male 7:44 AM CDT Gender Identity Not on file Sexual Orientation Not on file Plan of Treatment Health Maintenance Due Date Last Done Comments COLOGUARD (AGES 45-75) - COLON CA SCREENING 1979 COLON MONITORING 1979 COLONOSCOPY - COLON CA SCREENING 1979 CT COLONOGRAPHY - COLON CA SCREENING 1979 Colorectal Cancer Screening 1979 FIT - COLON CA SCREENING 1979 FLEX SIG - COLON CA SCREENING 1979 LIPID TESTING 1979 HIV SCREENING 1994 HEPATITIS C SCREENING 03/27/1997 DTAP/TDAP/TD VACCINES (1 - Tdap) 1998 HEPATITIS B VACCINE (1 of 3 - 19+ 3-dose series) 1998 HPV VACCINE (1 - 3-dose SCDM series) 2006 COVID-19 VACCINE ( season) 2024 05/31/2021, 08/05/2020, 07/15/2020 DEPRESSION SCREENING 07/29/2024 INFLUENZA VACCINE (#1) 2025 , 06/06/2020, 05/10/2020, Additional history exists ZOSTER VACCINE (1 of 2) 2029 HIB VACCINE Aged Out No longer eligi ble based on patient's age to complete this topic MENINGOCOCCAL (Group B) VACCINE SHARED DECISION-MAKING Aged Out No longer eligible based on patient's age to complete this topic MENINGOCOCCAL GROUPS A/C/Y/W VACCINE Aged Out No longer eligible based on patient's age to complete this topic PNEUMOCOCCAL VACCINE Aged Out No long er eligible based on patient's age to complete this topic Insurance
--- OUTSIDE RECORDS SUMMARY | 2025-02-25 00:19 | XMS_ITS | Clinical Summary ---
Author Organization [facility] Address [address] [place] [address] Care Team Providers Care Enterprise Systems Architect Name Role Phone Andrés Hankins MD Primary Care Provider [phone] Mckenna Castro MD Unavailable Allergies No known active allergies Medications onabotulinumto [...] aura, intractable Myopia 03/26/2012 Atypical migraine 07/07/2010 Encounters Date Type Department Care Team Description 02/17/2025 8:30 AM CDT [facility] [facility] [address] [place] [id number] Mckenna Castro MD Intractable chronic migraine without aura and without status migrainosus from Last 3 Months Medical History Medical History Date Comments Hx Other Medical 2011 colonoscopy Hx Other Medical 2009 colonoscopy Hx Other Medical 2007 colonoscopy Hx Other Medical 2005 colonoscopy Pneumonia 1998 pneumonia Hx Other Medical Headache, migra ine Hx Other Medical Left ankle frac ture Migraine Family History Medical History Relation Name Comments Asthma Child Asthma; Colon cancer Mother Cancer, colon; Other Other No family histo ry of headache; Relation Name Status Comments Child Mother Other Social History Tobacco Use Types Packs/Day Years [...] on file Legal Sex Male 7:33 AM CADDIE Gender Identity Not on file Sexual Orientation Not on file Obstetrics History Last Filed Vital Signs Vital Sign Reading [...] 02/17/2025 8:12 AM CDT Plan of Treatment Health Maintenance Due Date Last Done Comments Colon Cancer Screening-Colonoscopy 1979 Depression Screening 1979 Hepatitis C Screening 1979 Regular Well Visit/Exam 18-64 1997 HPV Vaccines (1 - 3-dose SCDM series) 2006 Covid-19 Vaccine ( season) 2024 05/31/2021, 08/05/2020, 07/15/2020 Influenza Vaccine (#1) 2025 , 06/06/2020, 05/10/2020, Additional history exists DTaP/Tdap/Td Vaccine (3 - Td or Tdap) 09/27/2026 09/27/2016, 09/10/2012, 01/03/2008, Additional history exists Hepatitis B Screening Completed 08/03/1998 , 12/13/1997, 11/11/1997 Pneumococcal vaccine <65 Aged Out No longer eligible based on patient's age to complete this topic Procedures Procedure Name Priority Date/Time Associated Diagnosis Comments BOTOX INJECTION Routine 02/17/2025 8:30 AM CDT Intractable chronic migraine without aura and without status migrainosus from Last 3 Months Results * Botox Injection (02/17/2025 8:30 AM CDT) Narrative Kiara Calix - 02/17/2025 8:30 AM CDT Kiara Calix 02/18/2025 8:24 AM Botox Injection Performed by: Mckenna Castro MD Authorized by: Mckenna Castro MD [address] Protocol: Procedure Details - Botox Injection: Procedure Details: See Botox flow sheet for details on injection sites and amounts. Mckenna Castro MD IN CLINIC/BEDSIDE ORDERABLES Final Result from Last 3 Months Insurance [employer] Care Teams Enterprise Systems Architect Relationship Specialty Start Date End Date Andrés Hankins MD PCP - General 02/19/17 Mckenna Castro MD [address] [address] Consulting Physician Neurology 11/15/21
--- OUTSIDE RECORDS SUMMARY | 2025-02-25 00:19 | XMS_ITS | Clinical Summary ---
Author Organization [facility] Address [address] [place] [address] Phone Care Team Providers Care Experimental Plastics Fabricator Name Role Phone Provider, None Primary Care Provider Unavailabl e Allergies No known active allergies Medications methylPREDNISol one (Medrol) 4 MG Tablet Therapy PackIndications :COVID-19 Use as per instructions on package. 21 Tab 0 Active albuterol (ProAir HFA) 108 (90 Base) MCG/ACT Aerosol SolutionIndicat ions:COVID-19 take 2 Puffs by inhalation every 4 hours as needed for Wheezing or Cough. 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 Gender Identity Not on file Sexual Orientation Not on file Last Filed Vital Signs Vital Sign Reading Time Taken Comments Blood Pressure 116/74 06/13/2020 1:35 PM KEY ACCOUNT MANAGER Pulse 80 06/13/2020 1:35 PM KEY ACCOUNT MANAGER Temperature 36.8 C (98.2 F) 06/13/2020 1:35 PM KEY ACCOUNT MANAGER Respiratory Rate 20 06/13/2020 1:35 PM KEY ACCOUNT MANAGER Oxygen Saturation 98% 06/13/2020 1:35 PM KEY ACCOUNT MANAGER Inhaled Oxygen Concentration - - Weight 79.4 kg (175 lb) 06/13/2020 1:35 PM KEY ACCOUNT MANAGER Height 170.2 cm (5' 7) 06/13/2020 1:35 PM KEY ACCOUNT MANAGER Body Mass Index 27.41 06/13/2020 1:35 PM KEY ACCOUNT MANAGER Plan of Treatment Health Maintenance Due Date Last Done Comments Hepatitis C Virus (HCV) Screening 1979 TdaP Immunization 1979 Human Papillomavirus (HPV) Immunization (1 - Male 3-dose series) 1994 Hepatitis B Immunization (1 of 3 - 19+ 3-dose series) 1998 SARS-COV-2 Immunization (3 - 2023- season) 2024 08/05/2020, 07/15/2020 Cologuard 2024 Colonoscopy 2024 Colorectal Cancer Screening 2024 Immunochemical Fecal Occult Blood 2024 Influenza Immunization (#1) 2025 Respiratory Syncytial Virus (RSV) Immunization (Adult) (1 - 1-dose 75+ series) 2054 Meningococcal Immunization (ACWY) Aged Out No longer eligible b ased on patient's age to complete this topic Pneumococcal Immunization Combined Aged Out No longer eligible b ased on patient's age to complete this topic Rotavirus Immunization Aged Out No lo nger eligible based on patient's age to complete this topic Insurance [employer] Care Teams Experimental Plastics Fabricator Relationship Specialty Start Date End Date Provider, None [place] PCP - General 06/13/20
--- NOTE | 2025-03-09 16:25 | SUR.PREOP ---
Report to the Outpatient Waiting Room, entrance under the green pavilion located off [facility], at time _1030_ on date _03/17/2025_. Planned Procedure Time: _1230_.? Time changes happen often and if your time is changed the preop area will call you the afternoon before. - You and your visitor will be asked to self-screen and do not enter if you have any COVID symptoms. Please call surgeon if you need to reschedule. - A mask is optional within the hospital at this time. Patients may have clear liquids (water, carbonated beverages, clear teas, apple juice) until 3 hours (0930) prior to surgery with a maximum of 20 ounces. - No food from midnight until time of surgery and no smoking, or chewing tobacco (or any form of nicotine). No chewing gum, candy or mints. Take only the following medications with a SIP of water on the morning of surgery: _NA_ DO NOT STOP ANY OF YOUR OTHER PRESCRIPTION MEDICATIONS PRIOR TO SURGERY EXCEPT THE FOLLOWING Hold all vitamins and supplements for 3 days per anesthesiologist. Medications to discontinue per physician _NA_ Date to take last dose_NA_ Please no make-up, nail setswana, hairspray, perfume, deodorant, or body powder the day of surgery.? No jewelry (including any body piercings) or valuables the day of surgery, leave them at home.? Please take a shower or bath the night before, or the morning of, surgery with an antibacterial soap.? Wear comfortable, loose fitting clothing. - Jewelry must be removed prior to entering the operating room.? Rings and piercings that are not removed may be cut off. - The hospital will not accept responsibility for valuables.? - Please leave all valuables, including medications, at home the day of surgery. If you are going home after surgery, a licensed recycler forklift driver truck driver must drive you home.? - NO public transportation without another adult if you receive anesthesia. - We recommend that an adult stay with you for 24 hours following discharge. - We also recommend that you do not drive, make important decision, drink alcoholic beverages, or take any drugs that were not prescribed by your health care provider for at least 24 hours after your discharge time. Follow any additional instructions given to you from your surgeon. Telephone instructions given to _PATRICK_and asked if any additional questions and then verbalized understanding. Patient advised to call surgeon office or pre surgery nurse liaison [phone] if any additional questions.
--- NOTE | 2025-03-09 16:52 | SUR.PREOP ---
Per patient, no change in medical history or medications since previous interview. Updated instructions given to patient by this RN.
--- NOTE | 2025-03-16 13:01 | PM.IMHP ---
H&P: HPI History of Present Illness Date/Time: 03/16/25 13:01 Chief Complaint: Left plantar heel pain Narrative: a 44-year-old with a long history of left plantar heel pain. Pain on a daily basis with weight-bearing and activity. Difficulty with daily work duties due to pain. Originally had bilateral plantar heel pain. Successful ossatron shockwave treatment to the right heel. Still with pain on the left side. He has been doing daily stretching exercises, night splint and inserts for his shoe. In addition has a 5 year history of low back pain radiating into both legs. Previous MRI showed stenosis of the lumbar spine. He has failed treatment with stretching exercises, core strengthening, anti-inflammatories. Review of Systems Constitutional: Constitutional: Denies fever(s) Eyes: Eyes: Denies blurry vision ENT: Reports Normal hearing present Cardiovascular: Cardiovascular: Denies chest pain and Denies dyspnea Respiratory: Respiratory: Denies dyspnea and Denies wheezing Gastrointestinal: Gastrointestinal: Denies abdominal pain Genitourinary: Genitourinary: Denies urinary urgency Musculoskeletal: Musculoskeletal: Reports as per HPI and Denies numbness Integumentary/Breasts: Skin/Breast: Denies changing lesions and Denies sores Neurologic: Reports Normal hearing present, Denies behavioral changes, Denies confusion, Denies numbness and Denies convulsions Psychiatric: Psychiatric: Denies behavioral changes, Denies confusion and Denies hallucinations Endocrine: Endocrine: Denies heat intolerance Hematologic/Lymphatic: Hematologic/Lymphatic: Denies easy bleeding Allergic/Immunologic: Allergic/Immunologic: Denies wheezing PMF Past Medical History Medical History Lumbosacral spondylosis with radiculopathy Plantar fasciitis of left foot Plantar fasciitis of right foot Arthritis of right acromioclavicular joint Vertigo Migraine Meniere disease GERD (gastroesophageal reflux disease) Surgical History Surgical History No significant past surgical history Family History Family History Grandparent Carcinoma of colon Mother Carcinoma of colon Social History Social History Smoking status: Never smoker Alcohol intake: current Drinks per week: 1 Alcohol use details: Beer/Wine Substance use: never Substance use type: does not use Living arrangements: with family Occupation/Education: occupation 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 [employer] Gender identity (if verbalized by the patient): Male Sexual Orientation (if Verbalized by the Patient): Straight or Heterosexual Spiritual care concerns: No Meds Home Medications and Allergies Home Medications ?Medication ?Instructions ?Recorded ?Confirmed ?Type onabotulinumtoxinA 100 unit See Rx Instructions .Route .COMPLEX 01/31/22 02/17/25 History solution for injection (Botox) clomiphene citrate 50 mg tablet 50 mg PO DAILY 04/02/24 02/17/25 History (Clomid) finasteride 5 mg tablet 5 mg PO DAILY 04/02/24 02/17/25 History omeprazole 40 mg capsule,delayed 40 mg PO DAILY PRN Acid Reflux #30 05/19/24 02/17/25 Rx release caps multivitamin 1 tablet PO DAILY 07/06/24 02/17/25 History Allergies Allergy/AdvReac Type Severity Reaction Status Date / Time No Known Allergies Allergy Verified 03/09/25 16:51 Exam Const: General: healthy appearing; No in distress or confusion Orientation/consciousness: oriented to person, oriented to place, oriented to time and No confusion HENMT: Head: normal to inspection, normocephalic and atraumatic Eyes: Conjunctivae: conjunctivae normal Sclera: sclerae normal Neck: Neck: supple and nontender Resp: Effort & Inspection: normal respiratory effort and no audible wheezes Cardio: Rate: regular rate Rhythm: regular rhythm Back/Spine/Pelvis: Thoracic/Lumbar Spine: thoraco-lumbar ROM limited with forward flexion, with lateral flexion to the right and with lateral flexion to the left, lumbar spinal tenderness at L3, at L4 and at L5 and straight leg raise positive Skin: General skin exam: no rashes or lesions noted Neuro: General: oriented to person, oriented to place, oriented to time and No confusion Extrem: Right upper extremity: normal to inspection Left upper extremity: normal to inspection Right lower extremity: normal to inspection, normal capillary refill, ankle Details: normal to inspection and abnormal ROM Details: pain with active ROM, pain with passive ROM and with range as follows (dorsiflexion -10, planter flexion 40, inversion 15, eversion 5); no tenderness and no swelling and foot Details: tenderness (plantar heel ), vascular exam (2+ dorsalis pedis pulse ), tendon exam and motor-sensory exam (strength 5/5 throughout . Light touch sensation intact throughout ); no crepitus; no edema Left lower extremity: ankle Details: abnormal ROM Details: pain with active ROM, pain with passive ROM and with range as follows (dorsiflexion -10, planter flexion 40, inversion 15, Eversion 5); no tenderness and no swelling and foot Details: tenderness (plantar heel ), no edema, vascular exam (2+ dorsalis pedis pulse) and motor-sensory exam (strength 5/5 except peroneal 4/5 . Light touch sensation intact ); no ecchymosis Psych: Affect: normal affect Assessment and Plan Assessment and plan (1) Plantar fasciitis of left foot: Code(s): M72.2 - Plantar fascial fibromatosis Status: Acute Assessment and Plan: Patient is active with exercise. He has failed treatment with previous cortisone injections x2, physical therapy, stretching regimen, activity modification, shoe inserts. he had initial good relief after ossatron shockwave to the left heel 7 months ago. Continues to have pain on a daily basis and affects daily activity and weight-bearing. Discussed the condition, nature, etiology and course of natural history with the patient. Treatment options including surgical and nonoperative treatment were reviewed. Risks and benefits of each as well as alternatives reviewed. The patient's questions were answered. He has failed conservative treatment to date. ? Plan Discussed nonoperative and operative treatment options with the patient. Risks and benefits of each as well as alternatives were reviewed. All of the patient's questions were answered. The risks of surgery reviewed including but not limited to: Neurovascular damage, wound complication, infection, blood clot, pulmonary embolus, stroke, myocardial infarction, and anesthetic risks up to and including . Continued pain and possible dysfunction were explained. Specific risks of the procedure including later recurrence of deformity. No guarantees were offered. If complications occur, the patient understands the need for further treatment, possible further surgery. Patient verbalizes understanding and wishes to proceed. ? PLAN: Left plantar heel Ossatron shockwave
[2025-03-17] VITALS (8 sets, daily range): BP systolic 97–117; BP diastolic 55–79; PULSE 55–70; RESP 13–18; TEMP 36.3–36.4; O2SAT 96–100; BMI 27.6
--- OUTSIDE RECORDS SUMMARY | 2025-03-17 02:50 | XMS_ITS | Clinical Summary ---
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 Mckenna Castro MD IN CLINIC/BEDSIDE ORDERABLES Final Result from Last 3 Months Insurance [employer] Care Teams Crisis Nurse Relationship Specialty Start Date End Date Andrés Hankins MD PCP - General 02/19/17 Mckenna Castro MD [address] [address] Consulting Physician Neurology 11/15/21
--- OUTSIDE RECORDS SUMMARY | 2025-03-17 02:50 | XMS_ITS | Clinical Summary ---
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 Gender Identity Not on file Sexual Orientation Not on file Last Filed Vital Signs Vital Sign Reading Time Taken Comments Blood Pressure 116/74 06/13/2020 1:35 PM COPY CHASER Pulse 80 06/13/2020 1:35 PM COPY CHASER Temperature 36.8 C (98.2 F) 06/13/2020 1:35 PM COPY CHASER Respiratory Rate 20 06/13/2020 1:35 PM COPY CHASER Oxygen Saturation 98% 06/13/2020 1:35 PM COPY CHASER Inhaled Oxygen Concentration - - Weight 79.4 kg (175 lb) 06/13/2020 1:35 PM COPY CHASER Height 170.2 cm (5' 7) 06/13/2020 1:35 PM COPY CHASER Body Mass Index 27.41 06/13/2020 1:35 PM COPY CHASER Plan of Treatment Health Maintenance Due Date Last Done Comments Hepatitis C Virus (HCV) Screening 1979 TdaP Immunization 1979 Hepatitis B Immunization (1 of 3 - 19+ 3-dose series) 1998 Human Papillomavirus (HPV) Immunization (1 - 3-dose SCDM series) 2006 SARS-COV-2 Immunization (2023- season) 2024 08/05/2020, 07/15/2020 Cologuard 2024 Colonoscopy [...] topic Insurance [employer] Care Teams Continuous Churn Buttermaker Relationship Specialty Start Date End Date Provider, None [place] PCP - General 06/13/20
--- OUTSIDE RECORDS SUMMARY | 2025-03-17 02:50 | XMS_ITS | Clinical Summary ---
Author Organization [facility] Address [address] [place] [address] Care Team Providers Care Gemologist Name Role Phone Unavailable Primary Care Provider Unavailabl e Source Comments [facility],non-owned Affiliates and Associated Physician Practices is amultiple site organization consisting of ambulatory clinics and hospital sitesin [place], [place], [place] and [place]. This disclosure is being madepursuant to the Care Everywhere program and may not contain all information available regarding this patient. Last updated 18.[facility] [employer] Social History Tobacco Use Types Packs/Day Years [...]
[2025-03-17] MEDS: ACETAMINOPHEN 500 MG TABLET 1000 MG PO (10:59)
[2025-03-17] MEDS: LACTATED RINGERS 1,000 ML 30 ML IV CONT (10:59)
--- NOTE | 2025-03-17 11:11 | WPDANESEPPF ---
Anes - Initial Pre Proc Eval Procedure: Operation Date: 03/17/25 12:30 Proposed Procedures p Left Heel Ossatron Shockwave Treatment - Dejon Rae MD Date/Time: 03/17/25 11:11 Surgeon: Dejon Rae MD Pre Op Diagnosis: Lt Foot Plantar Fasciitis, Heel Pain Patient Data Age: 44 Gender: M Height: 1.7 m Weight: 80 kg Last Vital Signs Temp 36.4 C 03/17/25 10:57 Pulse 66 03/17/25 10:57 BP 113/79 03/17/25 10:57 Pulse Ox 100 03/17/25 10:57 O2 Del Method Room Air 03/17/25 10:57 Allergies Allergy/AdvReac Type Severity Reaction Status Date / Time No Known Allergies Allergy Verified 03/17/25 10:53 Home Medications ?Medication ?Instructions ?Recorded ?Confirmed ?Type onabotulinumtoxinA 100 unit See Rx Instructions .Route .COMPLEX 01/31/22 02/17/25 History solution for injection (Botox) clomiphene citrate 50 mg tablet 50 mg PO DAILY 04/02/24 02/17/25 History (Clomid) finasteride 5 mg tablet 5 mg PO DAILY 04/02/24 02/17/25 History omeprazole 40 mg capsule,delayed 40 mg PO DAILY PRN Acid Reflux #30 05/19/24 02/17/25 Rx release caps multivitamin 1 tablet PO DAILY 07/06/24 02/17/25 History Patient hx anesthesia problems: none Family hx anesthesia problems: none Results Review: All pre-operative results and documents have been reviewed as part of the pre-operative evaluation. [facility] Past Medical History Medical History Lumbosacral spondylosis with radiculopathy Plantar fasciitis of left foot Plantar fasciitis of right foot Arthritis of right acromioclavicular joint Vertigo Migraine Meniere disease GERD (gastroesophageal reflux disease) Surgical History Surgical History No significant past surgical history Family History Family History Grandparent Carcinoma of colon Mother Carcinoma of colon Social History Social History Smoking status: Never smoker Alcohol intake: current Drinks per week: 1 Alcohol use details: Beer/Wine Substance use: never Substance use type: does not use Living arrangements: with family Occupation/Education: occupation 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 Gender identity (if verbalized by the patient): Male Sexual Orientation (if Verbalized by the Patient): Straight or Heterosexual Spiritual care concerns: No Anes - Eval Final PreProcedure Day of Procedure 03/17/25 11:11 Patient weight: overweight Heart: regular rate and rhythm Lungs: clear to auscultation Airway: Mallampati scale class II Neurological: alert and oriented Last oral intake: >/= 8 hours ASA classification: II Emergent: no Anesthetic plan: proceed Anesthesia type and monitoring: general LMA and standard monitoring Results Review: All pre-operative results and documents have been reviewed as part of the pre-operative evaluation. Informed Consent: The patient's anesthetic plan and its attendant risks and benefits were discussed with the patient/family/POA. Questions were solicited and answers provided to the satisfaction of the patient/family/POA.
--- NOTE | 2025-03-17 11:42 | WPDHPUPDATE1 ---
History and Physical Update Update Date/Time: 03/17/25 11:42 History and Physical has been reviewed, including an updated exam of the patient. There are NO changes in the patient's condition. Risks, benefits, and alternatives have been discussed and questions answered. Patient agrees to proceed with procedure.
[2025-03-17] MEDS: BUPIVACAINE/EPINEPHRINE 0.5% 50 ML VIAL 10 ML INFILTRATE (12:36)
--- NOTE | 2025-03-17 12:51 | P.OP_ITS ---
Procedure Note - Detailed Date of Procedure 03/17/25 Pre-op Diagnosis Lt Foot Plantar Fasciitis, Heel Pain Post-op Diagnosis Same Procedure Performed Left heel ossatron shockwave treatment Surgeon Dejon Rae MD Sagger Maker 1st payroll human resources assistant Anesthesia General Indications 44-year-old with left plantar heel pain recalcitrant to treatment with cortisone injections, physical therapy and arch support inserts and activity modification. Presents for operative treatment. Description of Procedure Patient identified in the preoperative holding. Informed consent given. Operative extremity marked. Patient marked the area of maximal tenderness on the heel with indelible ink. Patient brought to the operating room where underwent anesthesia by anesthesia team. Positioned supine on operating room table. Time-out performed confirming the patient, site of the surgery and the plan. Shockwave unit then positioned for the left heel. Ultrasound gel applied to the heel. Shockwave then applied to left heel at an average of 19 kV for 2000 shock deliveries. Concentrated around area of marked maximal tenderness as well as diffusely plantar fascia, heel area and Achilles tendon insertion. Ultrasound gel then removed. Local anesthetic with 0.5% Marcaine with epinephrine applied. Patient awoken from anesthesia and taken to the recovery room in stable condition. Estimated Blood Loss 0 Tourniquet Time Total Tourniquet Time: 0 Drains No Packing No Pathology None sent Complications None Condition Stable Disposition PACU [facility] Billing Surgery - Charge Forward: Surgery Billing ([id number] [id number])
== END 2025-03-17 14:20 | disposition home or self-care (01) ==
PROVIDERS: PCP Internal Medicine; Visit Provider Orthopaedic Surgery
PROC: (CPT 28890; principal; 2025-03-17 12:30)
DX: M72.2 Plantar fascial fibromatosis (principal); M19.011 Primary osteoarthritis, right shoulder; K21.9 Gastro-esophageal reflux disease without esophagitis; M47.27 Other spondylosis with radiculopathy, lumbosacral region; Z80.0 Family history of malignant neoplasm of digestive organs
CPT/HCPCS: 28890; A9270; J1100; J2003; J2250; J2405; J2704; J3010; J7120

== ENCOUNTER 2025-04-28 00:02 | Day surgery (SDC) | payer OTHER, SELFPAY ==
[2025-04-16 10:46] VITALS: BMI 27.6
--- OUTSIDE RECORDS SUMMARY | 2025-04-28 00:05 | XMS_ITS | Clinical Summary ---
Author Organization [facility] Address [address] [place] [address] Care Team Providers Care Licensed Nuclear Operator Name Role Phone Unavailable Primary Care Provider Unavailabl e Source Comments [facility],non-owned Affiliates and Associated Physician Practices is amultiple site organization consisting of ambulatory clinics and hospital sitesin [place], [place], [place] and [place]. This disclosure is being madepursuant to the Care Everywhere program and may not contain all information available regarding this patient. Last updated 18.[facility] [email or web address] Social History Tobacco Use Types Packs/Day Years [...] of 3 - 19+ 3-dose series) 1998 DEPRESSION SCREENING 07/29/2024 COVID-19 VACCINE (4 - 2025-26 season) 2025 05/31/2021, 08/05/2020, 07/15/2020 INFLUENZA VACCINE (#1) 2025 , 06/06/2020, 05/10/2020, Additional history exists ZOSTER VACCINE (1 of 2) 2029 HIB VACCINE Aged Out No longer eligi ble based on patient's age to complete this topic HPV VACCINE Aged Out No longer eligi ble [...]
--- OUTSIDE RECORDS SUMMARY | 2025-04-28 00:05 | XMS_ITS | Clinical Summary ---
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 Gender Identity Not on file Sexual Orientation Not on file Last Filed Vital Signs Vital Sign Reading Time Taken Comments Blood Pressure 116/74 06/13/2020 1:35 PM TANK CALIBRATOR Pulse 80 06/13/2020 1:35 PM TANK CALIBRATOR Temperature 36.8 C (98.2 F) 06/13/2020 1:35 PM TANK CALIBRATOR Respiratory Rate 20 06/13/2020 1:35 PM TANK CALIBRATOR Oxygen Saturation 98% 06/13/2020 1:35 PM TANK CALIBRATOR Inhaled Oxygen Concentration - - Weight 79.4 kg (175 lb) 06/13/2020 1:35 PM TANK CALIBRATOR Height 170.2 cm (5' 7) 06/13/2020 1:35 PM TANK CALIBRATOR Body Mass Index 27.41 06/13/2020 1:35 PM TANK CALIBRATOR Plan of Treatment Health Maintenance Due Date Last Done Comments Hepatitis C Virus (HCV) Screening 1979 TdaP Immunization 1979 Hepatitis B Immunization (1 of 3 - 19+ 3-dose series) 1998 Cologuard 2024 Colonoscopy 2024 Colorectal Cancer Screening 2024 Immunochemical Fecal Occult Blood 2024 Influenza Immunization (#1) 2025 SARS-COV-2 Immunization (2024- season) 2025 08/05/2020, 07/15/2020 Respiratory Syncytial Virus (RSV) Immunization (Adult) (1 - 1-dose 75+ series) 2054 Human Papillomavirus (HPV) Immunization Aged Out No longer eligible b ased on patient's age to complete this topic Meningococcal Immunization (ACWY) Aged Out No longer eligible b ased on patient's age to complete this topic Pneumococcal Immunization Combined Aged Out No longer eligible b ased on patient's age to complete this topic Rotavirus Immunization Aged Out No lo nger eligible based on patient's age to complete this topic Insurance [employer] Care Teams Senior Net Software Developer Relationship Specialty Start Date End Date Provider, None [place] PCP - General 06/13/20
--- OUTSIDE RECORDS SUMMARY | 2025-04-28 00:05 | XMS_ITS | Clinical Summary ---
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 Gender Identity Not on file Sexual Orientation [...] Screening 1979 Regular Well Visit/Exam 18-64 1997 Covid-19 Vaccine ( season) 2025 05/31/2021, 08/05/2020, 07/15/2020 Influenza Vaccine (#1) 2025 , 06/06/2020, 05/10/2020, Additional history exists DTaP/Tdap/Td Vaccine (3 - Td or Tdap) 09/27/2026 09/27/2016, 09/10/2012, 01/03/2008, Additional history exists Hepatitis B Screening Completed 08/03/1998 , 12/13/1997, 11/11/1997 HPV Vaccines Aged Out No longer eligi ble based on patient's age to complete this topic Pneumococcal vaccine <65 Aged Out No longer [...] Castro MD Authorized by: Mckenna Castro MD [place] Protocol: Procedure Details - Botox Injection: Procedure Details: See Botox flow sheet for details on injection sites and amounts. Mckenna Castro MD IN CLINIC/BEDSIDE ORDERABLES Final Result from Last 3 Months Insurance [employer] Care Teams Banana Handler Relationship Specialty Start Date End Date Andrés Hankins MD PCP - General 02/19/17 Mckenna Castro MD [address] [facility] [place] [address] Consulting Physician Neurology 11/15/21
[2025-04-28 06:19] VITALS: BP 117/83; PULSE 62; RESP 18; TEMP 36.4; O2SAT 98; BMI 27.3
[2025-04-28] MEDS: LACTATED RINGERS 1,000 ML 150 ML IV CONT (06:22)
--- NOTE | 2025-04-28 07:14 | WPDANESEPPF ---
Anes - Initial Pre Proc Eval Procedure: Operation Date: 04/28/25 07:30 Proposed Procedures p EGD & Screening Colonoscopy - Richard Musa MD Date/Time: 04/28/25 07:14 Surgeon: Richard Musa MD Pre Op Diagnosis: Family history of familial adenomatous polyposis Patient Data Age: 45 Gender: M Height: 1.7 m Weight: 79.3 kg Last Vital Signs Temp 97.6 F 04/28/25 06:19 Pulse 62 04/28/25 06:19 Resp 18 04/28/25 06:19 BP 117/83 04/28/25 06:19 Pulse Ox 98 04/28/25 06:19 O2 Del Method Room Air 04/28/25 06:19 Allergies Allergy/AdvReac Type Severity Reaction Status Date / Time No Known Allergies Allergy Verified 04/28/25 06:17 Home Medications ?Medication ?Instructions ?Recorded ?Confirmed ?Type onabotulinumtoxinA 100 unit See Rx Instructions .Route .COMPLEX 01/31/22 04/16/25 History solution for injection (Botox) clomiphene citrate 50 mg tablet 50 mg PO DAILY 04/02/24 04/28/25 History (Clomid) finasteride 5 mg tablet 5 mg PO DAILY 04/02/24 04/28/25 History omeprazole 40 mg capsule,delayed 40 mg PO DAILY PRN Acid Reflux #30 05/19/24 04/28/25 Rx release caps multivitamin 1 tablet PO DAILY 07/06/24 04/28/25 History Patient hx anesthesia problems: none Family hx anesthesia problems: none Results Review: All pre-operative results and documents have been reviewed as part of the pre-operative evaluation. [facility] Past Medical History Medical History Lumbosacral spondylosis with radiculopathy Plantar fasciitis of left foot Plantar fasciitis of right foot Arthritis of right acromioclavicular joint Vertigo Migraine Meniere disease GERD (gastroesophageal reflux disease) Surgical History Surgical History No significant past surgical history Family History Family History Grandparent Carcinoma of colon Mother Carcinoma of colon Social History Social History Smoking status: Never smoker Alcohol intake: current Drinks per week: 1 Alcohol use details: Beer/Wine Substance use: never Substance use type: does not use Living arrangements: with family Occupation/Education: occupation 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 Gender identity (if verbalized by the patient): Male Sexual Orientation (if Verbalized by the Patient): Straight or Heterosexual Spiritual care concerns: No Anes - Eval Final PreProcedure Day of Procedure 04/28/25 07:14 Patient weight: normal Lungs: normal air movement Airway: Mallampati scale class II Neurological: alert and oriented Last oral intake: >/= 8 hours ASA classification: II Emergent: no Anesthetic plan: proceed Anesthesia type and monitoring: general GIVS and standard monitoring Results Review: All pre-operative results and documents have been reviewed as part of the pre-operative evaluation. 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 Informed Consent: The patient's anesthetic plan and its attendant risks and benefits were discussed with the patient/family/POA. Questions were solicited and answers provided to the satisfaction of the patient/family/POA.
--- NOTE | 2025-04-28 07:24 | PM.HPGS ---
History of Present Illness History of Present Illness Consent: Risks, benefits, and alternatives have been discussed and questions answered. Patient agrees to proceed with procedure. 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, he has been getting egd/colonoscopy every year Review of Systems Review of Systems: All systems reviewed & are unremarkable except as noted in HPI and below PMFSH Past Medical History Medical History Lumbosacral spondylosis with radiculopathy Plantar fasciitis of left foot Plantar fasciitis of right foot Arthritis of right acromioclavicular joint Vertigo Migraine Meniere disease GERD (gastroesophageal reflux disease) Surgical History Surgical History No significant past surgical history Family History Family History Grandparent Carcinoma of colon Mother Carcinoma of colon Social History Social History Smoking status: Never smoker Alcohol intake: current Drinks per week: 1 Alcohol use details: Beer/Wine Substance use: never Substance use type: does not use Living arrangements: with family Occupation/Education: occupation 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 Gender identity (if verbalized by the patient): Male Sexual Orientation (if Verbalized by the Patient): Straight or Heterosexual Spiritual care concerns: No Meds Home Medications and Allergies Home Medications ?Medication ?Instructions ?Recorded ?Confirmed ?Type onabotulinumtoxinA 100 unit See Rx Instructions .Route .COMPLEX 01/31/22 04/16/25 History solution for injection (Botox) clomiphene citrate 50 mg tablet 50 mg PO DAILY 04/02/24 04/28/25 History (Clomid) finasteride 5 mg tablet 5 mg PO DAILY 04/02/24 04/28/25 History omeprazole 40 mg capsule,delayed 40 mg PO DAILY PRN Acid Reflux #30 05/19/24 04/28/25 Rx release caps multivitamin 1 tablet PO DAILY 07/06/24 04/28/25 History Allergies Allergy/AdvReac Type Severity Reaction Status Date / Time No Known Allergies Allergy Verified 04/28/25 06:17 Vital Signs Vital Signs - 24 hr 04/28/25 06:19 Temperature 97.6 F Pulse Rate 62 Respiratory Rate 18 Blood Pressure 117/83 Pulse Oximetry 98 Oxygen Delivery Room Air Exam Const: General: comfortable and no acute distress HENMT: Face/Nose/Sinus: Normal nares present Eyes: General: appearance normal, both eyes and all related structures Neck: Neck: no JVD Resp: Auscultation: clear to auscultation bilaterally Cardio: Rate: regular rate Rhythm: regular rhythm GI: Inspection: non-distended GI Palp: Yes Soft to palpation Skin: General skin exam: normal color Extrem: General: normal to inspection Psych: Mental Status: mental status grossly normal Assessment and Plan Assessment and plan (1) MSH2-related Roger syndrome (HNPCC1): Code(s): Z15.09 - Genetic susceptibility to other malignant neoplasm Status: Acute Assessment and Plan: egd and colonoscopy (2) Familial adenomatous polyposis: Code(s): D12.6 - Benign neoplasm of colon, unspecified Status: Acute
--- NOTE | 2025-04-28 07:39 | SUR.OPER ---
EGD: ended 733, COLON: started 737
[2025-04-28 07:50] VITALS: BP 97/62; PULSE 63; RESP 18; O2SAT 100
[2025-04-28 08:00] VITALS: BP 103/65; PULSE 61; RESP 20; O2SAT 100
[2025-04-28 08:10] VITALS: BP 113/77; PULSE 63; RESP 20; O2SAT 100
== END 2025-04-28 08:14 | disposition home or self-care (01) ==
PROVIDERS: PCP Internal Medicine; Referring Provider Internal Medicine Gastroenterology; Visit Provider Internal Medicine Gastroenterology
PROC: 0DJ08ZZ Inspection of Upper Intestinal Tract, Via Natural or Artificial Opening Endoscopic (ICD-10-PCS; CPT 45378; principal; 2025-04-28 07:30)
DX: Z15.09 Genetic susceptibility to other malignant neoplasm (principal); M19.011 Primary osteoarthritis, right shoulder; K21.9 Gastro-esophageal reflux disease without esophagitis; H81.09 Meniere's disease, unspecified ear; Z80.0 Family history of malignant neoplasm of digestive organs; Z83.72 Family history of familial adenomatous polyposis
CPT/HCPCS: 43235; 45378; J2003; J2704; J7120